=== PATIENT | male | born 1950 | race Asian ===

== ENCOUNTER 2017-04-20 07:16 | Inpatient (IN) | payer OTHER ==
[~2017-04-20] VITALS: Ht 170.2 cm; Wt 68.9 kg
[2017-04-20] VITALS (27 sets, daily range): BP systolic 106–150; BP diastolic 69–92; PULSE 68–95; RESP 9–20; Ht 170.2 cm; Wt 68.9 kg
[~2017-04-20 07:16] MED LIST: ATOR40TA68 PO; DORZ10DR BOTH EYES; LEVO300T PO; ROCURONIUM 50 MG INJ ONE; SITA50TA2 PO
[2017-04-20] MEDS ORDERED: BUPIVACAINE 0.5% (SDV) 30 ML INJ ONE (07:18)
[2017-04-20 08:56] LABS: ADD SCAN DIFF NO
[2017-04-20 09:00] LABS: BASOPHILS % 0.6 % (0.0-2.0); EOSINOPHILS # 0.2 10^3/ul (0.0-0.5); EOSINOPHILS % 4.7 % (0.0-7.0); HEMATOCRIT 39.2 % (42.0-52.0); HEMOGLOBIN 13.9 g/dl (14.0-18.0); LYMPHOCYTES # 1.4 10^3/ul (0.8-2.9); LYMPHOCYTES % 38.6 % (15.0-51.0); MEAN CORPUSCULAR HEMOGLOBIN 31.8 pg (29.0-33.0); MEAN CORPUSCULAR HGB CONC 35.5 g/dl (32.0-37.0); MEAN CORPUSCULAR VOLUME 89.7 fl (82.0-101.0); MEAN PLATELET VOLUME 9.9 fl (7.4-10.4); MONOCYTE # 0.3 10^3/ul (0.3-0.9); MONOCYTES % 7.2 % (0.0-11.0); NEUTROPHIL # 1.8 10^3/ul (1.6-7.5); NEUTROPHILS % 48.6 % (39.0-77.0); PLATELET COUNT 138 10^3/UL (140-415); RED BLOOD COUNT 4.37 10^6/ul (4.70-6.10); RED CELL DISTRIBUTION WIDTH 12.2 % (11.5-14.5); WHITE BLOOD COUNT 3.6 10^3/ul (4.8-10.8)
[2017-04-20] MEDS ORDERED: FENTAnyl 50 MCG/ML VIAL ONE ×4 (09:34→15:06)
[2017-04-20 09:36] LABS: ALBUMIN 4.8 g/dl (3.3-4.9); ALBUMIN/GLOBULIN RATIO 1.45; BILIRUBIN,INDIRECT 0.6 mg/dl (0-1.1); BILIRUBIN,TOTAL 0.6 mg/dl (0.2-1.3); TOTAL PROTEIN 8.1 g/dl (6.1-8.1)
[2017-04-20 09:44] LABS: CREATININE 0.92 mg/dl (0.61-1.24); POTASSIUM 3.8 mmol/L (3.5-5.1)
[2017-04-20 09:45] LABS: CALCIUM 9.4 mg/dl (8.4-10.2)
[2017-04-20 09:50] LABS: INR 0.99; PARTIAL THROMBOPLASTIN TIME 25.6 Sec (25.0-35.0); PROTIME 13.1 Sec (12.2-14.2)
--- NOTE | 2017-04-20 09:56 | HP ---
DATE OF ADMISSION: 04/20/2017 CHIEF COMPLAINT: Left renal mass. HISTORY OF PRESENT ILLNESS: This is a 66-year-old male who had a kidney stone. As part of his work up, he underwent a CT scan which revealed a 2.6 cm left upper pole enhancing renal mass. In 08/2016 , the patient underwent a right-sided laser lithotripsy for a kidney stone as well as eventual sten t removal. On the contralateral side, the patient was found to have a kidney mass. CT scan of the abdomen and pelvis in 12/2016 revealed a 2.6 cm enhancing mass medial upper pole of t he left kidney consistent with renal malignancy. The patient does not have any gross hematuria. His flank pain from his kidney stone has resolved. He has nocturia 1 to 2 times with frequency every 2 to 3 hours. There is mild occasional urge incon tinence. PAST MEDICAL HISTORY: Glaucoma, hypertension, hypothyroid, diabetes. PAST SURGICAL HISTORY: Appendectomy, cataracts years ago and 4 years ago, right kidney stone treatment either ESWL or ureteroscopy with eventual stent removal. FAMILY HISTORY: No malignancy. Father, diabetes. SOCIAL HISTORY: Quit smoking 15 years ago, does not drink alcohol. ALLERGIES: NO KNOWN DRUG ALLERGIES. CURRENT MEDICATIONS: 1. Atorvastatin 2. Levothyroxine. 3. Januvia. The patient reports he has not taken his Januvia for the past 2 weeks and today's bloo d sugar was 120. 4. The patient also takes glaucoma medications, but does not know the name of the medications. REVIEW OF SYSTEMS: CONSTITUTIONAL: No fevers, no chills, no change in appetite, weight gain or weight loss. HEENT: No loss of hearing, no ear or sinus pain. No rhinorrhea, nosebleed or sore throat. CARDIOVASCULAR: No chest pain, no shortness of breath or heart palpitations. RESPIRATORY: No cough. No phlegm production, wheezing or hemoptysis. GASTROINTESTINAL: No abdominal pain, no cramping, no nausea. MUSCULOSKELETAL: No bone pain. No change in strength or joint pain. INTEGUMENTARY: No skin rash or lesions. NEUROLOGICAL: No dizziness, no headaches, no numbness. PSYCHIATRIC: No suicidal ideation. No depression. The patient is anxious over his upcoming surger y. HEMATOLOGIC/LYMPHATIC: no known bleeding problems. No easy bruising. No lymph node enlargement. PHYSICAL EXAMINATION: CONSTITUTIONAL: The patient appears to be in no acute distress, well-developed, well nourished. GASTROINTESTINAL: Abdomen is soft, normal bowel sounds, nondistended, nontender. Hernia exam: Non e noted. Liver and spleen normal. GENITOURINARY: Scrotum: No lesions, no edema, no erythema, mass, rash, or cysts. Epididymis symme tric, normal size, normal texture, nontender. Urethral meatus normal in size and location. Testes are descended bilaterally. NECK: Normal appearing, symmetric. Normal tracheal position. EXTREMITIES: No edema. ASSESSMENT: 1. Left-sided renal mass 2.6 cm enhancing, worrisome for renal cell carcinoma. 2. History of right-sided kidney stone, status post treatment. 3. Mild benign prostatic hypertrophy and lower urinary tract symptoms. RECOMMENDATIONS: I have spoken with the patient in detail about the natural history and biology of kidney masses. We have discussed various treatment options. Among these options, the patient has e lected to undergo a laparoscopic left partial nephrectomy, left retroperitoneal lymphadenectomy, nep hrorrhaphy, lysis of adhesions, left ureterolysis. This procedure has been explained to the patient in detail. Risks and benefits have been discussed. He understands that risks include, but are not limited to infection, bleeding, damage to adjacent structures, heart problems, lung problems, possi bility of need for further surgery, DVT, PE, ID, CVA, nonresolution of symptoms, recurrence of sympt oms, need for other treatments, need for other surgeries, finding of no cancer in the final specimen , need to convert to open surgery, need to remove the entire kidney, bowel injury, splenic injury, v ascular injury, need for blood transfusion. All the patient's questions have been answered, no guar antees given. The patient would like to proceed. The patient expressed some concerns about not having robotic surgery and instead having laparoscopic surgery. I explained to the patient the differences between robotic and laparoscopic. One of his main concerns was that the engineer assistant would be holding the camera for a protracted period of time. H e wanted to know if there would be another surgeon in the room to assist during laparoscopic surgery . I explained to the patient that whether it is robotic or laparoscopic, I would have another surge on assisting I also explained to him that my engineer assistant has been doing surgeries with me for a long time. I explained to him that the person who will be assisting is very experienced in these surgeri es as we have been doing these surgeries together for a long time. The patient felt reassured that w e would do everything possible to take very good care of him. He would like to proceed with the ope ration. Dictated By: AJ CHAWLA MD SR/NTS Conf#: [id number] DID#: [id number]
[2017-04-20] MEDS ORDERED: PROPOFOL 20 ML ONE (10:22)
[2017-04-20] MEDS ORDERED: ROCURONIUM 50 MG INJ ONE (10:22)
[2017-04-20] MEDS ORDERED: GLYCOPYRROLATE 0.4 MG INJ ONE (10:22)
[2017-04-20] MEDS ORDERED: NEOSTIGMINE 3 MG/3 ML SYRINGE ONE (10:22)
[2017-04-20] MEDS ORDERED: CEFAZOLIN 1 GM INJ ONE (10:22)
[2017-04-20] MEDS ORDERED: LIDOCAINE 2% (SDV) 5 ML INJ ONE (10:22)
[2017-04-20] MEDS ORDERED: SUCCINYLCHOLINE CHLORIDE 100 MG/5 ML SYG IV ONE (10:22)
[2017-04-20] MEDS ORDERED: LATA2.5D2 BOTH EYES (10:25)
[2017-04-20] MEDS ORDERED: FENTAnyl 50 MCG/ML VIAL IV PRN ×2 (10:30)
[2017-04-20] MEDS ORDERED: MEPERIDINE 25 MG INJ IV PRN (10:30)
[2017-04-20] MEDS ORDERED: DIPHENHYDRAMINE 50 MG INJ IV PRN (10:30)
[2017-04-20] MEDS ORDERED: METOCLOPRAMIDE 10 MG INJ IV PRN (10:30)
[2017-04-20] MEDS ORDERED: HYDROmorphONE (0.2 MG/ML) 10ML SYG IV PRN ×2 (10:30)
[2017-04-20] MEDS ORDERED: ONDANSETRON 4 MG INJ IV PRN (10:30)
[2017-04-20] MEDS ORDERED: MANNITOL 25% 50 ML INJ IV SCH ×2 (12:30→14:00)
[2017-04-20] MEDS ORDERED: SUGAMMADEX SODIUM 200 MG/2 ML VIAL IV ONE (14:29)
[2017-04-20] MEDS ORDERED: ROPIVACAINE 0.5 % 30 ML VIAL ONE (14:30)
[2017-04-20] MEDS ORDERED: CEFAZOLIN 2 GM/50 ML (PMX) 50 ML IVPB SCH (15:00)
[2017-04-20] MEDS ORDERED: ACETAMINOPHEN 325 MG TAB PO PRN (15:00)
--- NOTE | 2017-04-20 15:01 | OPR ---
Date/Time of Note Date/Time of Note DATE: 04/20/17 TIME: 15:00 Operative Report Preoperative Diagnosis left renal mass Postoperative Diagnosis left renal mass Operation/Procedure Performed laparoscopic left partial nephrectomy Surgeon: AJ CHAWLA phlebotomist medical lab assistant: CARIE ROSALES M.D. Anesthesia: general Estimated Blood Loss: 200 - 250 ml's Specimens left renal mass' LN/'s Grafts/Implants none Complications: None AJ CHAWLA Apr 20, 2017 15:01
[2017-04-20] MEDS ORDERED: HYDROmorphONE (0.2 MG/ML) 10ML SYG IV ONE (15:26)
[2017-04-20] MEDS ORDERED: GLUCOSE GEL 15 GRAM TUBE PO PRN ×2 (15:30)
[2017-04-20] MEDS ORDERED: GLUCAGON 1 MG INJ IM PRN (15:30)
[2017-04-20] MEDS ORDERED: GLUCOSE GEL 15 GRAM TUBE BUCCAL PRN (15:30)
[2017-04-20] MEDS ORDERED: DEXTROSE 50% 50 ML SYRINGE IV PRN ×2 (15:30)
[2017-04-20] MEDS: HYDROmorphONE (0.2 MG/ML) 10ML SYG IV PRN ×2 (15:37→15:42)
[2017-04-20] MEDS: SOD CHLORIDE 0.9% 1,000 ML IV SCH (15:39)
[2017-04-20 16:04] LABS: ADD SCAN DIFF NO
[2017-04-20] MEDS ORDERED: DIPHENHYDRAMINE 50 MG INJ ONE (16:15)
[2017-04-20 16:25] LABS: BASOPHILS % 0.2 % (0.0-2.0); EOSINOPHILS % 0.1 % (0.0-7.0); HEMATOCRIT 40.2 % (42.0-52.0); LYMPHOCYTES # 1.5 10^3/ul (0.8-2.9); LYMPHOCYTES % 15.5 % (15.0-51.0); MEAN CORPUSCULAR HEMOGLOBIN 31.6 pg (29.0-33.0); MEAN CORPUSCULAR HGB CONC 34.8 g/dl (32.0-37.0); MEAN CORPUSCULAR VOLUME 90.7 fl (82.0-101.0); MEAN PLATELET VOLUME 9.9 fl (7.4-10.4); MONOCYTE # 0.6 10^3/ul (0.3-0.9); MONOCYTES % 6.1 % (0.0-11.0); NEUTROPHIL # 7.3 10^3/ul (1.6-7.5); NEUTROPHILS % 77.8 % (39.0-77.0); PLATELET COUNT 142 10^3/UL (140-415); RED BLOOD COUNT 4.43 10^6/ul (4.70-6.10); RED CELL DISTRIBUTION WIDTH 12.3 % (11.5-14.5); WHITE BLOOD COUNT 9.4 10^3/ul (4.8-10.8)
[2017-04-20] MEDS: CEFAZOLIN 2 GM/50 ML (PMX) 50 ML IVPB SCH (18:46)
[2017-04-20] MEDS: ACCU-CHEK XX SCH (21:00)
[2017-04-20] MEDS: INSULIN ASPART [NOVOLOG] 3 ML PEN SC SCH (21:00)
[2017-04-20] MEDS: morphine 2 MG INJ IV PRN (21:15)
[2017-04-21] MEDS: CEFAZOLIN 2 GM/50 ML (PMX) 50 ML IVPB SCH ×2 (01:47→09:27)
[2017-04-21] MEDS: ACCU-CHEK XX SCH ×4 (02:00→20:21)
[2017-04-21] MEDS: SOD CHLORIDE 0.9% 1,000 ML IV SCH ×4 (04:02→15:21)
[2017-04-21 05:48] LABS: ADD SCAN DIFF NO
[2017-04-21] MEDS: PANTOPRAZOLE (EC) 40 MG TAB PO SCH (05:49)
[2017-04-21] MEDS: LEVOTHYROXINE 50 MCG TAB PO SCH (05:49)
[2017-04-21] MEDS: morphine 2 MG INJ IV PRN ×4 (05:49→17:12)
[2017-04-21 06:06] LABS: BASOPHILS % 0.2 % (0.0-2.0); HEMATOCRIT 35.2 % (42.0-52.0); HEMOGLOBIN 12.1 g/dl (14.0-18.0); MEAN CORPUSCULAR HEMOGLOBIN 31.3 pg (29.0-33.0); MEAN CORPUSCULAR HGB CONC 34.4 g/dl (32.0-37.0); MEAN PLATELET VOLUME 9.9 fl (7.4-10.4); MONOCYTE # 0.5 10^3/ul (0.3-0.9); MONOCYTES % 7.4 % (0.0-11.0); NEUTROPHILS % 77.2 % (39.0-77.0); PLATELET COUNT 140 10^3/UL (140-415); RED BLOOD COUNT 3.87 10^6/ul (4.70-6.10); RED CELL DISTRIBUTION WIDTH 12.7 % (11.5-14.5); WHITE BLOOD COUNT 6.5 10^3/ul (4.8-10.8)
[2017-04-21 06:13] LABS: MAGNESIUM 1.5 mg/dl (1.7-2.5); PHOSPHORUS 3.6 mg/dl (2.5-4.9)
[2017-04-21 06:17] LABS: ALBUMIN 3.6 g/dl (3.3-4.9); ALBUMIN/GLOBULIN RATIO 1.44; BILIRUBIN,INDIRECT 0.6 mg/dl (0-1.1); BILIRUBIN,TOTAL 0.6 mg/dl (0.2-1.3); CALCIUM 8.4 mg/dl (8.4-10.2); CREATININE 1.15 mg/dl (0.61-1.24); POTASSIUM 3.7 mmol/L (3.5-5.1); TOTAL PROTEIN 6.1 g/dl (6.1-8.1)
[2017-04-21 07:32] VITALS: BP 105/55; RESP 18
[2017-04-21] MEDS ORDERED: HYDROmorphONE 1 MG/ML SYG IV PRN (08:00)
--- NOTE | 2017-04-21 08:14 | CONS ---
DATE OF ADMISSION: 04/20/2017 DATE OF CONSULTATION: 04/20/2017 REASON FOR CONSULTATION: Medical management. HISTORY OF PRESENT ILLNESS: The patient is a 66-year-old male with a history of dyslipidemia, as we ll as hypothyroidism. The patient also had a left renal mass. The patient was admitted for laparos copic left partial nephrectomy because of his left renal mass. The patient is currently reporting s ome pain postoperatively. He has no other acute issues. PAST MEDICAL HISTORY: Hypothyroidism, dyslipidemia, left renal mass, now status post left-sided nep hrectomy. PAST SURGICAL HISTORY: The patient denies any other surgeries in the past. HOME MEDICATIONS: 1. Statin. 2. Synthroid. 3. Latanoprost eyedrops. ALLERGIES: NO KNOWN DRUG ALLERGIES. FAMILY HISTORY: Denies. SOCIAL HISTORY: Denies any alcohol, tobacco or drugs. REVIEW OF SYSTEMS: A 12-point review of systems was negative except as stated in the HPI. PHYSICAL EXAMINATION: VITAL SIGNS: Temperature is 97.8, pulse 92, respirations 18, BP is 122/78, saturations are 95% on r oom air. GENERAL: In no acute distress. HEENT: Normocephalic, atraumatic. CHEST: Clear to auscultation. CARDIOVASCULAR: Regular rate and rhythm. ABDOMEN: Nondistended, nontender, soft. EXTREMITIES: No clubbing, cyanosis, or edema. LABORATORIES: CBC within normal limits. White count is 9.4, hemoglobin is 14.0, platelets are 142. Chemistry within normal limits except for a sodium of 147, anion gap is 17. ASSESSMENT AND PLAN: 1. Left renal mass status post laparoscopic left partial nephrectomy. Pain control. 2. Hypothyroidism. Continue home medications. 3. Hypernatremia. IV fluids. 4. Prophylaxis. SCDs. Dictated By: SUSAN SANDERSON MD BS/NTS Conf#: [id number] DID#: [id number]
[2017-04-21] MEDS: INSULIN ASPART [NOVOLOG] 3 ML PEN SC SCH ×4 (08:15→22:10)
[2017-04-21] MEDS ORDERED: MAGNESIUM SULFATE 4 GM/100 ML 100 ML IVPB ONE (09:00)
[2017-04-21] MEDS: HYDROCODONE/APAP (5/325) TAB PO PRN ×2 (11:22→21:29)
[2017-04-21] MEDS: LATANOPROST 0.005% 2.5 ML OPH BOTH EYES SCH (11:22)
--- NOTE | 2017-04-21 11:27 | CONS ---
DATE OF ADMISSION: 04/20/2017 DATE OF CONSULTATION: HISTORY OF PRESENT ILLNESS: Mr. Jensen is a 66-year-old male status post partial nephrectomy, robotic assisted on postop day #1. Today he is doing well. He has been tolerating clear liquids without an y noted difficulty. PHYSICAL EXAMINATION: VITAL SIGNS: Stable. LUNGS: Clear breath sounds bilaterally. HEART: Regular rate and rhythm. ABDOMEN: Soft. Hypoactive bowel sounds. EXTREMITIES: Wound clean, dry and intact. GENITOURINARY: Harper catheter draining clear yellow urine. Hemoglobin 12.1. IMPRESSION: Doing well status post partial robotic nephrectomy on postop day #1. PLAN: Case discussed with the hospitalist, Dr. Jewell. Dr. Jewell would like to just monitor the patient for pain control until tomorrow. If the patient is stable the patient will be then discharged. Jeremy ellington written a prescription for [place] 10/325 1/2 tablet to one tab p.o. q.6h. p.r.n., dispensed #30, no refill. The patient will follow up with Dr. Marti in 2 weeks' time or sooner as indicated. All questions answered. Dictated By: SON DAWKINS/NTS Conf#: [id number] DID#: [id number]
[2017-04-21] MEDS: ACETAMINOPHEN 325 MG TAB PO SCH ×3 (11:55→22:08)
[2017-04-21 19:30] VITALS: BP 108/67; RESP 20
--- NOTE | 2017-04-21 20:28 | CONS ---
Date/Time of Note Date/Time of Note DATE: 04/21/17 TIME: 20:26 Consultation Date/Type/Reason Admit Date/Time Apr 20, 2017 at 07:16 Initial Consult Date 04/21/17 Type of Consultation: Anesthesiology Reason for Consultation Follow up 24 HR Interval Summary Free Text/Dictation Pt seen and examined is POD#1 s/p Laprascopic Left Partial Nephrectomy. Pt is currently doing well and states he has minimal abdominal pain but does have some back pain most likely due to positioning. Pt received a B/L TAP Block for post-op pain. No N/V/D/C/GIBBONS. Will follow. Constitutional: improved, no complaints Exam/Review of Systems Vital Signs Vitals Vital Signs Date Time Temp Pulse Resp B/P Pulse Ox O2 Delivery O2 Flow Rate FiO2 04/21/17 19:30 98.6 86 20 108/67 93 04/20/17 21:37 Room Air 04/20/17 19:38 2.0 Intake and Output 04/20/17 04/20/17 04/21/17 15:00 23:00 07:00 Intake Total 2500 ml 1150 ml Output Total 200 ml 825 ml 375 ml Balance -200 ml 1675 ml 775 ml Results Result Diagram: 04/21/17 0530 04/21/17 0530 Results 24 hrs Laboratory Tests Test 04/20/17 21:27 04/21/17 05:30 04/21/17 08:02 04/21/17 10:19 Bedside Glucose 160 139 161 White Blood Count 6.5 # Red Blood Count 3.87 L Hemoglobin 12.1 L Hematocrit 35.2 L Mean Corpuscular Volume 91.0 Mean Corpuscular Hemoglobin 31.3 Mean Corpuscular Hemoglobin Concent 34.4 Red Cell Distribution Width 12.7 Platelet Count 140 Mean Platelet Volume 9.9 Neutrophils % 77.2 H Lymphocytes % 15.0 Monocytes % 7.4 Eosinophils % 0.0 Basophils % 0.2 Nucleated Red Blood Cells % 0.0 Neutrophils # 5.0 Lymphocytes # 1.0 Monocytes # 0.5 Eosinophils # 0.0 Basophils # 0.0 Nucleated Red Blood Cells # 0.0 Sodium Level 143 Potassium Level 3.7 Chloride Level 109 Carbon Dioxide Level 24 Anion Gap 14 Blood Urea Nitrogen 19 Creatinine 1.15 Glucose Level 145 Calcium Level 8.4 Phosphorus Level 3.6 Magnesium Level 1.5 L Total Bilirubin 0.6 Direct Bilirubin 0.00 Indirect Bilirubin 0.6 Aspartate Amino Transf (AST/SGOT) 39 Alanine Aminotransferase (ALT/SGPT) 54 Alkaline Phosphatase 73 Total Protein 6.1 # Albumin 3.6 # Globulin 2.50 Albumin/Globulin Ratio 1.44 Test 04/21/17 11:53 04/21/17 13:56 04/21/17 17:07 Bedside Glucose 155 149 127 Medications Medications Current Medications Latanoprost (Xalatan) 1 drop DAILY BOTH EYES Last administered on 04/21/17 11: 22; Admin Dose 1 DROP; Start 04/21/17 at 09:00 Levothyroxine Sodium (Synthroid) 50 mcg DAILY@06 PO Last administered on 05:49; Admin Dose 50 MCG; Start 04/21/17 at 06:00 Morphine Sulfate (morphine) 2 mg Q2H PRN IV PAIN LEVEL 6-10 Last administered on 04/21/17 17:12; Admin Dose 2 MG; Start 04/20/17 at 15:00 Acetaminophen/ Hydrocodone Bitart ([place] (5/325)) 1 tab Q6H PRN PO PAIN LEVEL 6 -10 Last administered on 04/21/17 11:22; Admin Dose 1 TAB; Start 04/20/17 at 15 :00 Acetaminophen (Tylenol Tab) 650 mg Q6H PRN PO PAIN AND OR ELEVATED TEMP; Start 04/20/17 at 15:00 Pantoprazole 40 mg 40 mg DAILY@06 PO Last administered on 04/21/17 05:49; Admin Dose 40 MG; Start 04/21/17 at 06:00 Sodium Chloride (NS) 1,000 ml @ 100 mls/hr Q10H IV Last administered on 15:21; Admin Dose 100 MLS/HR; Start 04/20/17 at 14:54 Diagnostic Test (Pha) (Accu-Chek) 1 ea 02 XX ; Start 04/21/17 at 02:00 Miscellaneous Information 1 ea NOTE XX ; Start 04/20/17 at 15:30 Glucose (Glutose) 15 gm Q15M PRN PO DECREASED GLUCOSE; Start 04/20/17 at 15:30 Glucose (Glutose) 22.5 gm Q15M PRN PO DECREASED GLUCOSE; Start 04/20/17 at 15: 30 Dextrose (D50w Syringe) 25 ml Q15M PRN IV DECREASED GLUCOSE; Start 04/20/17 at 15:30 Dextrose (D50w Syringe) 50 ml Q15M PRN IV DECREASED GLUCOSE; Start 04/20/17 at 15:30 Glucagon (Glucagen) 1 mg Q15M PRN IM DECREASED GLUCOSE; Start 04/20/17 at 15:30 Glucose (Glutose) 15 gm Q15M PRN BUCCAL DECREASED GLUCOSE; Start 04/20/17 at 15 :30 Hydromorphone HCl (Dilaudid) 0.5 mg Q3H PRN IV BREAKTHROUGH PAIN; Start at 08:00 Acetaminophen (Tylenol Tab) 650 mg Q6H PO Last administered on 04/21/17t 17:11 ; Admin Dose 650 MG; Start 04/21/17 at 11:00 KORY BALLARD Apr 21, 2017 20:28
[2017-04-22] MEDS: ACCU-CHEK XX SCH ×3 (02:00→14:19)
[2017-04-22] MEDS: morphine 2 MG INJ IV PRN (02:49)
[2017-04-22] MEDS: SOD CHLORIDE 0.9% 1,000 ML IV SCH (02:53)
[2017-04-22] MEDS: LEVOTHYROXINE 50 MCG TAB PO SCH (05:07)
[2017-04-22] MEDS: PANTOPRAZOLE (EC) 40 MG TAB PO SCH (05:07)
[2017-04-22] MEDS: ACETAMINOPHEN 325 MG TAB PO SCH ×2 (05:11→11:07)
[2017-04-22 05:32] LABS: ADD SCAN DIFF NO
[2017-04-22 05:44] LABS: BASOPHILS % 0.1 % (0.0-2.0); EOSINOPHILS % 0.6 % (0.0-7.0); HEMOGLOBIN 10.6 g/dl (14.0-18.0); LYMPHOCYTES % 13.5 % (15.0-51.0); MEAN CORPUSCULAR HGB CONC 34.2 g/dl (32.0-37.0); MEAN CORPUSCULAR VOLUME 90.6 fl (82.0-101.0); MEAN PLATELET VOLUME 9.9 fl (7.4-10.4); MONOCYTE # 0.5 10^3/ul (0.3-0.9); MONOCYTES % 6.5 % (0.0-11.0); NEUTROPHIL # 5.6 10^3/ul (1.6-7.5); PLATELET COUNT 116 10^3/UL (140-415); RED BLOOD COUNT 3.42 10^6/ul (4.70-6.10); RED CELL DISTRIBUTION WIDTH 12.4 % (11.5-14.5); WHITE BLOOD COUNT 7.1 10^3/ul (4.8-10.8)
[2017-04-22 06:14] LABS: CALCIUM 7.9 mg/dl (8.4-10.2); CREATININE 1.14 mg/dl (0.61-1.24); MAGNESIUM 2.2 mg/dl (1.7-2.5); POTASSIUM 3.4 mmol/L (3.5-5.1)
[2017-04-22 07:28] VITALS: BP 115/67; RESP 19
[2017-04-22] MEDS: HYDROCODONE/APAP (5/325) TAB PO PRN ×2 (07:45→14:16)
[2017-04-22] MEDS: INSULIN ASPART [NOVOLOG] 3 ML PEN SC SCH ×2 (08:14→12:10)
[2017-04-22] MEDS: LATANOPROST 0.005% 2.5 ML OPH BOTH EYES SCH (10:04)
[2017-04-22] MEDS ORDERED: POTASSIUM CHLORIDE (SR) 20 MEQ TAB PO STA (11:34)
[2017-04-22] MEDS ORDERED: HYDR-3498 PO (11:36)
[2017-04-22] MEDS ORDERED: PANT40TA4 PO (11:36)
[2017-04-22] MEDS ORDERED: DOCU250C58 PO (11:38)
--- NOTE | 2017-04-22 11:40 | PDOCDIS ---
Discharge Instructions DIAGNOSIS Discharge Diagnosis L renal mass s/p status post partial robotic nephrectomy CONDITION Patient Condition: Stable HOME CARE INSTRUCTIONS: Your diet recommendation is: Clear liquid ACTIVITY: Activity Restrictions: Slowly Increase Activity Rest between Activity Activity Restrictions Comment: Try to stay ambulant REFERRALS Other Referrals F/u with Dr Marti at the time he has instructed you to do so. Call his office if you have questions. . MIKE ANNA Apr 22, 2017 11:40
--- NOTE | 2017-04-22 17:18 | DS ---
Date/Time of Note Date/Time of Note DATE: 04/22/17 TIME: 17:17 Discharge Summary Admission/Discharge Info Admit Date/Time Apr 20, 2017 at 07:16 Discharge Date/Time Apr 22, 2017 at 14:40 Discharge Diagnosis #1 L renal mass s/p status post partial robotic nephrectomy #2 Mild postop urinary retention, patient being d/c with teague . Patient Condition: Stable Consults Urology: Figueroa . Procedures See hospital course . Hospital Course 66-year-old male who was admitted for elective laparoscopic left partial nephrectomy secondary to a left renal mass worrisome for renal cell carcinoma. He underwent surgery April 20, 2017 after which we were consulted for medical management. Postoperatively he did fairly well, but still had a lot of pain. He was kept in the hospital until postoperative day 2 for pain control, and just general overall improvement in clinical status. His postoperative course was however complicated by a mild urinary retention after we discontinued his Teague catheter, and a surgery urology recommended that he be discharged with a Teague catheter and he will go to the office on Tuesday for removal. Discussed discussed with the patient and the patient agreed with this plan. The nurses were instructed to show him how to empty the Teague bag. Other comorbidities were managed as per medical records, please review for further information. Patient has been discharge by urology, and he looks better today and I am okay with discharge as well. . Home Meds Active Scripts Docusate Sodium* (Colace*) 250 Mg Capsule, 250 MG PO DAILY, #30 CAP Prov:CHRISTINA ANNAOsvaldo Kingston 04/22/17 Hydrocodone Bit-Acetaminophen (Hydrocodone Bit-APAP) 5-325MG Tablet, 1 TAB PO Q6H Y for PAIN LEVEL 6-10 for 30 Days, TAB Prov:TALHA ANNAYUE Mathis. 04/22/17 Pantoprazole* (Pantoprazole*) 40 Mg Tablet.dr, 40 MG PO DAILY@06 for 30 Days Prov:TALHA ANNAYUE Kingston 04/22/17 Reported Medications Latanoprost (Latanoprost) 2.5 Ml Drops, 1 DROP BOTH EYES, #1 BOTTLE 04/20/17 Levothyroxine Sodium (Levothyroxine Sodium) 300 Mcg Tablet, 50 MCG PO BEFORE BREAKFAST, #30 TAB 09/22/16 Discontinued Reported Medications Dorzolamide Hcl* (Dorzolamide Hcl*) 10 Ml Drops, 2 DROP BOTH EYES TID, #1 EA 09/22/16 Sitagliptin* (Januvia*) 50 Mg Tablet, 50 MG PO DAILY, #30 TAB 09/22/16 Atorvastatin* (Atorvastatin*) 40 Mg Tablet, 10 MG PO QHS, #30 TAB 09/22/16 Follow-up Plan Dr Marti on tuesday to have teague removed. Primary Care Provider Clyde Harris Time spent on discharge: > 30 minutes Pending Labs Laboratory Tests Test 04/21/17 20:21 04/21/17 22:09 04/22/17 04:55 04/22/17 08:02 Bedside Glucose 117mg/dL (70-220) 114mg/dL (70-220) 146mg/dL (70-220) White Blood Count 7.110^3/ul (4.8-10.8) Red Blood Count 3.4210^6/ul (4.70-6.10) Hemoglobin 10.6g/dl (14.0-18.0) Hematocrit 31.0% (42.0-52.0) Mean Corpuscular Volume 90.6fl (82.0-101.0) Mean Corpuscular Hemoglobin 31.0pg (29.0-33.0) Mean Corpuscular Hemoglobin Concent 34.2g/dl (32.0-37.0) Red Cell Distribution Width 12.4% (11.5-14.5) Platelet Count 24315^3/UL (140-415) Mean Platelet Volume 9.9fl (7.4-10.4) Neutrophils % 79.0% (39.0-77.0) Lymphocytes % 13.5% (15.0-51.0) Monocytes % 6.5% (0.0-11.0) Eosinophils % 0.6% (0.0-7.0) Basophils % 0.1% (0.0-2.0) Nucleated Red Blood Cells % 0.0/100WBC (0.0-0.0) Neutrophils # 5.610^3/ul (1.6-7.5) Lymphocytes # 1.010^3/ul (0.8-2.9) Monocytes # 0.510^3/ul (0.3-0.9) Eosinophils # 0.010^3/ul (0.0-0.5) Basophils # 0.010^3/ul (0.0-0.1) Nucleated Red Blood Cells # 0.010^3/ul (0.0-0.0) Sodium Level 140mmol/L (135-144) Potassium Level 3.4mmol/L (3.5-5.1) Chloride Level 110mmol/L (97-110) Carbon Dioxide Level 24mmol/L (21-31) Anion Gap 9 (8-16) Blood Urea Nitrogen 20mg/dl (7-20) Creatinine 1.14mg/dl (0.61-1.24) Glucose Level 105mg/dl (70-220) Calcium Level 7.9mg/dl (8.4-10.2) Magnesium Level 2.2mg/dl (1.7-2.5) Test 04/22/17 10:02 04/22/17 12:10 04/22/17 14:18 Bedside Glucose 148mg/dL (70-220) 130mg/dL (70-220) 110mg/dL (70-220) MIKE ANNA Apr 22, 2017 17:18
--- NOTE | 2017-04-22 19:31 | OPR ---
DATE OF OPERATION: 04/20/2017 PREOPERATIVE DIAGNOSIS: Left renal mass worrisome for renal cell carcinoma. POSTOPERATIVE DIAGNOSES: 1. Left renal mass worrisome for renal cell carcinoma. 2. Intraperitoneal adhesions. 3. Retroperitoneal fibrosis. PROCEDURES PERFORMED: 1. Laparoscopic left partial nephrectomy. 2. Laparoscopic left retroperitoneal lymphadenectomy. 3. Laparoscopic left ureterolysis. 4. Laparoscopic left nephrorrhaphy. 5. Laparoscopic lysis of adhesions. OPERATING SURGEON: Aj Marti MD FIRE BATTALION CHIEF: Cristofer Pastor MD INDICATIONS FOR PROCEDURE: This patient has a history of a 2.6 cm left upper pole renal mass which is solid and enhancing with contrast, worrisome for renal cell carcinoma. He has elected to undergo the above said procedure. The procedure has been explained to the patient in detail. Risks and be nefits have been discussed. All of his questions have been answered, no guarantees given. He would like to proceed. FINDINGS: No evidence of metastatic disease was noted. Final resection margins were negative. Int raperitoneal adhesions and retroperitoneal fibrosis were encountered. PROCEDURE IN DETAIL: The patient was brought to the operating room, underwent general endotracheal tube anesthesia. A urethral catheter was placed sterilely. The patient was then placed in the late ral decubitus position with the left flank up. All the pressure points were accounted for. Table w as flexed. The right hip and knees were flexed. Pillows were placed between the legs. Axillary ro ll had also been placed. Pillows were also placed between the arms. The patient was secured agains t the table using gel roll and tape. Abdomen was then prepped and draped in the usual sterile fashi on. Abdomen was insufflated supraumbilically. Laparoscopic ports were placed. Laparoscopy was performe d. No evidence of metastatic disease was noted. Intraperitoneal adhesions were encountered. Adhes ional bands between omentum and abdominal wall, especially near the spleen were identified. These a dhesional bands were carefully taken down, taking care not to injure the spleen. Furthermore deeper in the pelvis, there were further adhesions between the colon and pelvic sidewall, which needed to be dissected in order to mobilize the colon medially. These adhesional bands were also taken down, taking care not to injure the colon. The left white line of Toldt was then incised. Colon was then mobilized medially. Dissection was c arried into the retroperitoneum from the pelvis all the way to the spleen. The splenic flexure was identified. Colon was further mobilized. Dissection was then carried more towards the midline unti l the tail of pancreas was identified. This was also further dissected off the surrounding structur es. At this point, the pulsation of the aorta as well as the area of the renal vein was identifiabl e. Retroperitoneal fibrotic process was encountered. The adhesional bands in this area were taken down near the ureter and gonadal vein in order to further mobilize the lower pole of the kidney and mobilize the ureter away from the Gerota's fascia. At this point, dissection was carried around the hilum of the kidney. An accessory lower pole renal artery was identified. Accessory lower pole renal vein was also identified. Both of these vascula r structures appeared to be about 5 to 6 mm in diameter. Next, dissection was then further carried along the aorta until the renal vein was identified. The main renal vein was then dissected from it s surrounding structures. At this point, attention was paid to finding the renal artery. The renal artery was directly posterior to the renal vein. The lymphatic tissue in this area was dissected u ntil the renal artery takeoff from the aorta was identified. Tissues around the renal artery were a lso dissected in order to further identify the renal artery for further placement of a vascular clam p. Attention was then paid to the retroperitoneal lymphadenectomy. The lymph nodes were dissected pamela g the renal hilum. Dissection was carried from the renal hilum inferiorly and caudad towards the in ferior mesenteric artery. Lymph nodes were swept off the aorta. Lymphatic channels were identified . These were clipped and divided. Dissection was carried towards the posterior abdominal wall/spin e. Lymph nodes were then further pedicalized. Lymphatic channels were again clipped and divided. Metal clips as well as Hemoclip Weck clips were used to identify the lymphatic vessels. Lymph nodes were then pedicalized and removed. Lymph nodes grossly appeared to be without evidence of disease. The area was carefully examined. There was no evidence of lymphatic leakage. At this point, the main renal vein and main renal artery as well as the lower pole renal vein and ar teries had been dissected. An incision was made into the Gerota's fascia anteriorly. Dissection was carried from the upper maxine e all the way to the lower pole. Gerota's fascia was swept off the kidney laterally until the lower pole, mid pole and upper pole of the kidney had been freed off the Gerota's fascia laterally and po steriorly. Next, dissection was carried along the upper pole more medially. As this was done, the tumor was identified. The Gerota's fascia was kept with the tumor. However, surrounding the tumor the Gerota's fascia was further freed. The upper pole aspect of the kidney was freed off the spleno renal ligament to obtain further mobility. Furthermore, posterior aspects of the kidney were dissec flaco off its attachments for further mobilization. At this point, since the patient required bulldog clamps, a Gelport was required to be placed. A sm all upper midline incision was made in the abdomen which incorporated one of the laparoscopic port s ites. Dissection was carried down to the anterior fascia of the linea alba. This was opened, perit chapin space was entered. The Gelport was then placed. The left hand was placed into the abdominal cavity. Abdomen was reinsufflated. The patient was given 12.5 grams of mannitol. Once the mannito l had been well infused, 3 vascular clamps were placed. The first 2 clamps were on the renal arteri es, the main renal artery and the lower pole renal artery. The last clamp was placed on the main re nal vein. At this point, the tumor on the kidney was identified. Dissection was carried around the edges of t he tumor with a 1 cm margin. Dissection was carried deeper into the kidney. As this dissection was carried, the tumor appeared to take root deeper into the renal parenchyma. There is no distinct ca psule at this point to the tumor as it buried itself further into the kidney. Dissection was armen d into the renal parenchyma in order to obtain margins. At this point, the tumor plus Gerota's fasc ia was completely excised off the kidney. This was removed from the patient. A frozen section was then sent for margins. This frozen section was performed by excising a portion of the remaining tis bart along the tumor bed on the kidney itself. The frozen section revealed some further tumor; howev er, the deeper aspect of the resection was clear. While the frozen section was being performed, the nephrorrhaphy had been started. However, since it appeared that the patient had further tumor pamela g the resection bed despite the fact that the deeper resection was negative, I decided to resect fur ther tissue in order to ensure negative margins. Therefore, the nephrorrhaphy sutures were taken do wn. At this point, a deeper resection was carried into the upper pole of the kidney. As this was d one, normal appearing adrenal tissue was identified around all the areas of resection. This further resection piece was completely removed from the patient. Next, another biopsy was performed along the remaining aspect of the upper pole of the kidney along the resection bed. At this point, the se cond margin that was sent did not reveal any further tumor. The margin was completely clear. Attention was then paid to performing the nephrorrhaphy. The bed of the resection was examined. Th ere were multiple open vessels which were identified. These were suture ligated using 2-0 Vicryl fi [id number] sutures. Next, attention was paid to closure of the actual defect onto itself. A 2-0 V-Loc absorbable suture was used to close this defect. The defect was closed in the following fash ion: A Weck clip was placed on the tail of the V-Loc suture, it was driven through the capsule, and then into the parenchyma. Next, it was brought out of the parenchyma and out of the capsule on the other side. This suture was placed on tension. Another V-Loc was placed with the suture on tensio n against the kidney capsule. Next, the suture was driven back in a vertical mattress fashion to th e other side in a Lembert fashion. Once this was done, another Weck clip was placed against the eva al capsule under tension. This suture was ran in a vertical mattress fashion all the way from one e dge to the other edge of the resection until the entire resection bed had been closed. Once the nep hrorrhaphy had been accomplished with the V-Loc suture, the renal vein clamp and the renal artery cl amps were removed. At this point, the patient was given another 12.5 grams of mannitol. The resection bed was carefully examined. There appeared to be no evidence of bleeding. The kidney became pink and well perfused. The renal artery started to pulsate. The renal veins also became f ull. The kidney appeared to be healthy. There was no evidence of bleeding. Intraperitoneal pressu re was decreased down to 7 mmHg. The abdomen was carefully examined for 10 minutes. No evidence of bleeding was identified, indicating no evidence of bleeding from the resection bed. Of note, since nephrorrhaphy had been accomplished and then decision was made to resect further tumo r, the patient had been given a total dose of 12.5 grams of mannitol. At this point, the kidney was reexamined. No bleeding was identified. Next, the kidney was placed back in its normal anatomic p osition. The Gerota's fascia was then closed back over the kidney in order to maintain the kidney i n its normal position. The renal artery and renal vein were reexamined. Both renal arteries and yulia th renal veins were full. The bowel was examined. There was no evidence of bowel injury. At this point, a 19-Al[place]ian Ronaldo drain was placed through the left lower quadrant port site. This was broug ht into the left renal fossa area. The fascia to this port site was partially closed using a 0 Vicr yl suture. The drain was sutured against the skin using 2-0 nylon. The rest of the laparoscopic po rts were then removed under direct vision. Fascia to the port sites were closed with 0 Vicryl figur e-of-eight sutures. The Gelport was removed. The fascia to the Gelport was then closed with #1 Benjamin ryl running suture. The abdomen had been swept. There were no lap pads or foreign objects within t he abdomen. Furthermore, the laparotomy counts, suture counts and instrument counts were all correc t. The wounds were irrigated. Skin was then closed using 4-0 Monocryl subcuticular stitch. Dermab ond was also applied to all the wounds. The patient was then placed back in a supine position. He was awakened, extubated, and taken to recovery room in stable condition. POSTPROCEDURE CONDITION: Stable. COMPLICATIONS: None. BLOOD LOSS: 250 mL. BLOOD ADMINISTERED: None. SPECIMENS SENT TO LAB: Left upper pole renal mass, left upper for additional mass resection, margin from base of left upper pole mass #1 and #2. Dictated By: AJ MARTI MD SR/NTS Conf#: [id number] DID#: [id number]
== END 2017-04-22 14:40 | disposition home or self-care (01) | DRG 657 ==
LOC: REC 07:16 → MS2 20:10
PROVIDERS: ADMIT Surgery Surgical Oncology; ATTEND Surgery Surgical Oncology
PROC: 07BD4ZX Excision of Aortic Lymphatic, Percutaneous Endoscopic Approach, Diagnostic (ICD-10-PCS; 2017-04-20)
PROC: 0T9B70Z Drainage of Bladder with Drainage Device, Via Natural or Artificial Opening (ICD-10-PCS; 2017-04-20)
PROC: 0TB14ZZ Excision of Left Kidney, Percutaneous Endoscopic Approach (ICD-10-PCS; principal; 2017-04-20 09:00)
DX: C64.2 Malignant neoplasm of left kidney, except renal pelvis (principal); E87.0 Hyperosmolality and hypernatremia; N99.89 Other postprocedural complications and disorders of genitourinary system; R33.8 Other retention of urine; N40.1 Benign prostatic hyperplasia with lower urinary tract symptoms; R35.1 Nocturia; R35.0 Frequency of micturition; E78.5 Hyperlipidemia, unspecified; E03.9 Hypothyroidism, unspecified; K66.0 Peritoneal adhesions (postprocedural) (postinfection); Z87.442 Personal history of urinary calculi; Z87.891 Personal history of nicotine dependence
CPT/HCPCS: 80048; 80053; 82962; 83735; 84100; 85025; 85610; 85730; 86850; 86900; 86901; 87086; 88307; 88331; 93005; J0690; J1170; J1200; J1644; J1815; J2150; J2270; J2710; J2795; J3010; J7030; J7999